=== PATIENT | female | born 1955 ===

== ENCOUNTER 2019-02-17 07:02 | Outpatient (CLI) | payer OTHER | END 2019-02-17 15:00 | disposition home or self-care (01) | LOC: LAB 07:02 | DX: D68.8 Other specified coagulation defects (principal); E78.2 Mixed hyperlipidemia; N39.0 Urinary tract infection, site not specified; R07.89 Other chest pain; I10 Essential (primary) hypertension ==

== ENCOUNTER 2023-05-17 10:35 | Outpatient (CLI) | payer OTHER | END 2023-05-17 10:38 | disposition home or self-care (01) | LOC: SONOGRAMA 10:35 | PROVIDERS: ATTEND Pathology Anatomic Pathology & Clinical Pathology | DX: D34 Benign neoplasm of thyroid gland (principal); E04.9 Nontoxic goiter, unspecified ==